=== PATIENT | female | born 1980 | race Caucasian/White ===

== ENCOUNTER 2018-07-07 11:58 | Emergency (ER) | payer OTHER ==
[2018-07-07] MEDS: NS 1,000 ML IV (12:53)
[2018-07-07] MEDS: METOCLOPRAMIDE INJ 10MG/2ML VIAL (J2765) IV (12:59)
[2018-07-07] MEDS: diphenhydrAMINE INJ 50MG/ML VIAL (J1200) IV (13:00)
[2018-07-07 13:06] LABS: HEMATOCRIT 42.6 % (36.0-47.0); HEMOGLOBIN 14.1 g/dl (12.0-15.5); MEAN CORPUSCULAR HEMOGLOBIN 31.3 pg (27.0-33.0); MEAN CORPUSCULAR HGB CONC 33.1 g/dl (32.0-36.5); MEAN CORPUSCULAR VOLUME 94.7 fl (80.0-96.0); PLATELET COUNT, AUTOMATED 223 10^3/uL (150-450); RED CELL DISTRIBUTION WIDTH 12.5 % (11.5-14.5); WHITE BLOOD COUNT 5.9 10^3/uL (4.0-10.0)
[2018-07-07] MEDS: KETOROLAC 30 MG/ML VIAL (J1885) IV (13:06)
[2018-07-07 13:17] LABS: INR 1.04; PROTHROMBIN TIME 13.7 SECONDS (12.1-14.4)
[2018-07-07 13:27] LABS: ANION GAP 5 MEQ/L (8-16); BLOOD UREA NITROGEN 8 MG/DL (7-18); CALCIUM LEVEL 9.1 MG/DL (8.5-10.1); CARBON DIOXIDE LEVEL 30 MEQ/L (21-32); CHLORIDE LEVEL 107 MEQ/L (98-107); CREATININE FOR GFR 0.78 MG/DL (0.55-1.30); GLOMERULAR FILTRATION RATE > 60.0 (>60); GLUCOSE, FASTING 82 MG/DL (70-100); POTASSIUM SERUM 4.2 MEQ/L (3.5-5.1); SODIUM LEVEL 142 MEQ/L (136-145)
== END 2018-07-07 14:22 | disposition home or self-care (01) ==
LOC: M ED 11:58
DX: G43.909 Migraine, unspecified, not intractable, without status migrainosus (principal); J45.909 Unspecified asthma, uncomplicated; Z72.0 Tobacco use
CPT/HCPCS: J1200

== ENCOUNTER 2019-08-14 14:05 | Inpatient (IN) | payer OTHER ==
[~2019-08-14] VITALS: Ht 167.6 cm; Wt 72.0 kg
[~2019-08-14 14:05] MED LIST: REGL10TA6 PO
[2019-08-14 14:25] LABS: VENOUS BASE EXCESS -1.3 (-2.0-2.0); VENOUS HCO3 20.7 MEQ/L (23.0-27.0); VENOUS PARTIAL PRESSURE CO2 28.2 mmHg (38.0-50.0); VENOUS PARTIAL PRESSURE O2 42.8 mmHg (30.0-50.0); VENOUS PH 7.483 UNITS (7.330-7.430); VENOUS STANDARD HCO3 23.1 MEQ/L; VENOUS TOTAL CO2 21.5 MEQ/L (24.0-28.0)
[2019-08-14] MEDS ORDERED: ONDANSETRON 4MG/2ML VIAL (J2405) As Ordered ONE (14:32)
--- NOTE | 2019-08-14 14:33 | REP ---
Clinical: Drug overdose . Comparison: 12/30/2011 . Findings: The mediastinum and cardiac silhouette are stable and within normal limits for portable technique. The lung moreno are clear without acute consolidation, effusion, or pneumothorax. Skeletal structures are intact. Impression: No acute cardiopulmonary process appreciated. Electronically Signed by Hunter Syed MD 08/14/2019 02:23 P
[2019-08-14 14:39] LABS: BASO # 0.1 10^3/uL (0.0-0.2); BASO % 0.8 % (0.0-1.0); EOS # 0.1 10^3/uL (0.0-0.5); EOS % 1.6 % (0.0-3.0); HEMATOCRIT 46.5 % (36.0-47.0); HEMOGLOBIN 15.2 g/dl (12.0-15.5); LYMPH # 2.8 10^3/uL (1.5-5.0); LYMPH % 37.1 % (24.0-44.0); MEAN CORPUSCULAR HEMOGLOBIN 30.2 pg (27.0-33.0); MEAN CORPUSCULAR HGB CONC 32.7 g/dl (32.0-36.5); MEAN CORPUSCULAR VOLUME 92.4 fl (80.0-96.0); MONO # 0.4 10^3/uL (0.0-0.8); MONO % 5.9 % (0.0-5.0); NEUTROPHILS % 54.2 % (36.0-66.0); PLATELET COUNT, AUTOMATED 293 10^3/uL (150-450); RED BLOOD COUNT 5.03 10^6/uL (4.00-5.40); WHITE BLOOD COUNT 7.4 10^3/uL (4.0-10.0)
[2019-08-14] MEDS ORDERED: ONDANSETRON 4MG/2ML VIAL (J2405) IV ONE (14:45)
[2019-08-14] MEDS ORDERED: CETACAINE SPRAY 5GM As Ordered ONE (14:50)
[2019-08-14 15:00] LABS: HCG, SERUM QUALITATIVE NEGATIVE (NEGATIVE); OSMOLALITY SERUM 293 MOSM/KG (275-295)
[2019-08-14 15:08] LABS: ACETAMINOPHEN LEVEL < 2.0 UG/ML (10.0-30.0); ALBUMIN 4.7 GM/DL (3.2-5.2); ALT/SGPT 36 U/L (12-78); BILIRUBIN,DIRECT < 0.1 MG/DL (0.0-0.2); BILIRUBIN,TOTAL 0.4 MG/DL (0.2-1.0); BLOOD UREA NITROGEN 11 MG/DL (7-18); CALCIUM LEVEL 9.6 MG/DL (8.5-10.1); CARBON DIOXIDE LEVEL 21 MEQ/L (21-32); CHLORIDE LEVEL 105 MEQ/L (98-107); CPK CREATINE PHOSPHOKINASE 129 U/L (26-192); CREATININE FOR GFR 1.02 MG/DL (0.55-1.30); ETHYL ALCOHOL (ETHANOL) < 0.003 % (0.000-0.010); GLOMERULAR FILTRATION RATE > 60.0 (>58); GLUCOSE, FASTING 121 MG/DL (70-100); POTASSIUM SERUM 3.5 MEQ/L (3.5-5.1); SALICYLATE LEVEL < 1.7 MG/DL (5.0-30.0); SODIUM LEVEL 139 MEQ/L (136-145); TOTAL PROTEIN 8.1 GM/DL (6.4-8.2)
[2019-08-14] MEDS ORDERED: CETACAINE SPRAY 5GM TOP ONE (15:15)
[2019-08-14] MEDS ORDERED: SERT-141 PO (15:23)
--- NOTE | 2019-08-14 15:56 | ECGEPIP ---
[facility] - ED Test Date: 2019-08-14 Pat Name: GERMÁN FRANCIS Department: Room: - Gender: Female Mammal Control Agent: marquis : 1980 Requested By: LIZ EMERY Order Number: [id number] Reading MD: Marshal Cartwright Measurements Intervals [place] Rate: 89 P: 74 [place]: 145 QRS: 79 QRSD: 83 T: 73 QT: 378 QTc: 462 Interpretive Statements SINUS RHYTHM WITH SINUS ARRHYTHMIA POOR R WAVE PROGRESSION NSTTW ABNORMALITIES NO PRIORS FOR COMPARISON Electronically Signed on 08-14-2019 15:55:59 EST by Marshal Cartwright
[2019-08-14] MEDS ORDERED: CEPACOL LOZENGE PO STA (16:20)
[2019-08-14] MEDS ORDERED: ALBUTEROL SULFATE 2.5 MG/0.5 ML INH NEB SOLN INH ONE (16:30)
[2019-08-14] MEDS ORDERED: NS 1,000 ML IV ONE (17:00)
[2019-08-14] MEDS ORDERED: SERT-138 PO (17:08)
[2019-08-14] MEDS ORDERED: VALA1TAB64 PO (17:08)
[2019-08-14 17:56] LABS: BLOOD UREA NITROGEN 14 MG/DL (7-18); CALCIUM LEVEL 9.5 MG/DL (8.5-10.1); CARBON DIOXIDE LEVEL 22 MEQ/L (21-32); CHLORIDE LEVEL 109 MEQ/L (98-107); CREATININE FOR GFR 0.93 MG/DL (0.55-1.30); GLOMERULAR FILTRATION RATE > 60.0 (>58); GLUCOSE, FASTING 138 MG/DL (70-100); POTASSIUM SERUM 3.5 MEQ/L (3.5-5.1); SODIUM LEVEL 142 MEQ/L (136-145)
--- NOTE | 2019-08-14 18:06 | HPEPDOC ---
[facility] Medical History & Physical Date of Admission Aug 14, 2019 Date of Service: Aug 14, 2019 History and Physical CHIEF COMPLAINT: Overdose HISTORY OF PRESENT ILLNESS: Patient is 38F with PMH depression presented to the ER after suicidal attempt at home after ingesting 90 tablets of sertraline. Reportedly came in about 30-45 min after ingestion to the ER around 2PM today. She developed significant vomiting since ingestion at home and was noticed by her . Patient recently lost her son in while he was in [place] and have just returned about the services. She reports throat discomfort with significant cough and therefore difficult to speak much, much of history is verified with at bedside. In ER, she was scoped through the nares which noted the vocal cords to be intact and patent but some swelling noted in other surrounding areas, also some saliva noted in airway suggestive of aspiration. She started to require O2 in ER but currently saturating well on 4L. She denies any chest pain or any other discomfort apart from throat pain with cough and vomiting. PAST MEDICAL HISTORY: Refer to [facility] PAST SURGICAL HISTORY: Hysterectomy SOCIAL HISTORY: Social alcoho use. Denies tobacco or illicit drug use. FAMILY HISTORY: reviewed and noncontributory ALLERGIES: Please see below. REVIEW OF SYSTEMS: 10 point review of system negative except as stated in HPI HOME MEDICATIONS: Please see below. PHYSICAL EXAMINATION: General: Tachypnic, mild to moderate distress with cough, Alert and follow commands Eyes: Normal sclera, EOMI HENT: Atraumatic Cardiovascular: Normal rate, normal rhythm. Pulmonary: b/l basal rales GI: Soft, nontender, nondistended Skin: Warm and dry Neuro: CN grossly intact. No focal deficits. Strengths equal b/l. Psych: oriented x 3 LABORATORY DATA: See below. IMAGING: CXR- Findings: The mediastinum and cardiac silhouette are stable and within normal limits for portable technique. The lung moreno are clear without acute consolidation, effusion, or pneumothorax. Skeletal structures are intact. Impression: No acute cardiopulmonary process appreciated. MICROBIOLOGY: Please see below. ASSESSMENT AND PLAN: 1. Sertraline overdose - vomited profusely since arrival with pills noted in vomitus. - EKG reviewed with no significant abnormalities. - Poison controlled contact in ER, recommended monitoring for 6 hours with repeat BMP and EKG to assess Qtc interval. - Nasal scope in ER noted patent vocal cords. - Admit to ICU for close monitoring. If respiratory status worsening, will consult pulm to assess airway to determine need for intubation. - c/w O2 support as needed. - keep NPO at this time. - Psych consult. 1:1 observation, suicidal watch. 2. hx depression - Denies current suicidal ideation. - consult psych DVT ppx: lovenox Vital Signs Vital Signs Date Time Temp Pulse Resp B/P (MAP) Pulse Ox O2 Delivery O2 Flow Rate FiO2 08/14/19 17:30 99 20 110/70 (83) 94 Nasal Cannula 4.0 08/14/19 15:16 97.9 Laboratory Data Labs 24H Laboratory Tests 2 08/14/19 14:15: Immature Granulocyte % (Auto) 0.4, Neutrophils (%) (Auto) 54.2, Lymphocytes (%) (Auto) 37.1, Monocytes (%) (Auto) 5.9H, Eosinophils (%) (Auto) 1.6, Basophils (%) (Auto) 0.8, Neutrophils # (Auto) 4.0, Lymphocytes # (Auto) 2.8, Monocytes # (Auto) 0.4, Eosinophils # (Auto) 0.1, Basophils # (Auto) 0.1, Nucleated Red Blood Cells % (auto) 0.0, Blood Gas Bicarbonate Standard 23.1, Venous Blood pH 7.483H, Venous Blood Partial Pressure CO2 28.2L, Venous Blood Partial Pressure O2 42.8, Venous Blood Total Carbon Dioxide 21.5L, Venous Blood HCO3 20.7L, Venous Blood Oxygen Saturation 84.0H, Venous Blood Base Excess -1.3, Anion Gap 13, Glomerular Filtration Rate > 60.0, Osmolality 293, Lactic Acid Level 4.5*H, Calcium Level 9.6, Total Bilirubin 0.4, Direct Bilirubin < 0.1, Aspartate Amino Transf (AST/SGOT) 37, Alanine Aminotransferase (ALT/SGPT) 36, Alkaline Phosphatase 100, Total Creatine Kinase 129, Total Protein 8.1, Albumin 4.7, Alb umin/Globulin Ratio 1.38, Thyroid Stimulating Hormone (TSH) 2.230, Human Chorionic Gonadotropin, Qual NEGATIVE, Salicylates Level < 1.7L, Acetaminophen Level < 2.0L, Ethyl Alcohol Level < 0.003 08/14/19 14:23: Bedside Glucose (Misc Panel) 131H 08/14/19 14:24: POC Glucose (Misc Panel) 144H, POC Sodium (Misc Panel) 139, POC Potassium (Misc Panel) 3.5, POC Chloride (Misc Panel) 106, POC Total CO2 (Misc Panel) 21.0L, POC Blood Urea Nitrogen (Misc Panel 11, POC Ionized Calcium (Misc Panel) 4.5, POC Creatinine (Misc Panel) 0.8, POC Hematocrit (Misc Panel) 43.0 08/14/19 14:27: POC Beta HCG, Quantitative < 5.0 08/14/19 17:13: Anion Gap 11, Glomerular Filtration Rate > 60.0, Calcium Level 9.5 CBC/BMP Laboratory Tests 08/14/19 14:15 08/14/19 17:13 Home Medications Scheduled Sertraline HCl (Sertraline HCl) 100 Mg Tablet, 100 MG PO DAILY Valacyclovir HCl (Valacyclovir) 1,000 Mg Tablet, 1 GM PO DAILY Allergies Coded Allergies: No Known Allergies (Unverified , 07/07/18) A-FIB/CHADSVASC A-FIB History Current/History of A-Fib/PAF?: No GUME CISNEROS MD Aug 14, 2019 18:06
[2019-08-14 19:12] VITALS: BP 124/65
[2019-08-14] MEDS: NS 1,000 ML IV SCH (19:20)
[2019-08-14 19:29] LABS: BLOOD UREA NITROGEN 13 MG/DL (7-18); CALCIUM LEVEL 8.8 MG/DL (8.5-10.1); CARBON DIOXIDE LEVEL 21 MEQ/L (21-32); CHLORIDE LEVEL 112 MEQ/L (98-107); CREATININE FOR GFR 0.89 MG/DL (0.55-1.30); GLOMERULAR FILTRATION RATE > 60.0 (>58); GLUCOSE, FASTING 125 MG/DL (70-100); POTASSIUM SERUM 3.5 MEQ/L (3.5-5.1); SODIUM LEVEL 142 MEQ/L (136-145)
[2019-08-14 19:47] LABS: AMPHETAMINES LEVEL URINE NEGATIVE (NEGATIVE); BARBITURATES URINE NEGATIVE (NEGATIVE); BENZODIAZEPINES URINE POSITIVE (NEGATIVE); CANNABINOIDS URINE NEGATIVE (NEGATIVE); COCAINE METABOLITE URINE NEGATIVE (NEGATIVE); METHADONE URINE NEGATIVE (NEGATIVE); OPIATES URINE NEGATIVE (NEGATIVE); PHENCYCLIDINE URINE NEGATIVE (NEGATIVE)
[2019-08-14] MEDS: ONDANSETRON 4MG/2ML VIAL (J2405) IV PRN (19:47)
[2019-08-14] MEDS: IPRATROPIUM 0.5MG/ALBUTEROL 2.5MG INH SOL UD 3ML (DUONEB)(J7620) NEB PRN (20:19)
--- NOTE | 2019-08-14 20:29 | ECGEPIP ---
[facility] - ED Test Date: 2019-08-14 Pat Name: GERMÁN FRANCIS Department: Room: 01[facility] Gender: Female Bladder Changer: cesar : 1980 Requested By: TAMMY [place] Order Number: [id number] Reading MD: Marshal Cartwright Measurements Intervals [place] Rate: 98 P: 67 [place]: 155 QRS: 75 QRSD: 85 T: 66 QT: 358 QTc: 459 Interpretive Statements SINUS RHYTHM POOR R WAVE PROGRESSION NSTTW ABNORMALITIES SIMILAR TO PRIOR ON SAME DATE Electronically Signed on 08-14-2019 20:29:37 EST by Marshal Cartwright
[2019-08-14] MEDS ORDERED: methylPREDNISolone INJ 125 MG/2 ML VIAL (J2930) IV ONE (20:30)
[2019-08-14] MEDS: ENOXAPARIN 40 MG/0.4 ML SYRINGE (J1650) SC SCH (20:39)
[2019-08-14] MEDS: PIPERACILLIN/TAZOBACTAM SOD 3.375 GM in D5W MINI-BAG PLUS 50 ML IV SCH (20:39)
[2019-08-14 21:00] VITALS: BP 121/61
[2019-08-14] MEDS: LIDOCAINE VISCOUS 2% SOLN 15ML UDC SS PRN (21:27)
[2019-08-15] VITALS (7 sets, daily range): BP systolic 97–113; BP diastolic 54–68
--- NOTE | 2019-08-15 00:13 | ECGEPIP ---
[facility] Test Date: 2019-08-14 Pat Name: GERMÁN FRANCIS Department: Room: [place] [address] Gender: Female Interactive Developer: carolyn : 1980 Requested By: GUME Farrell Order Number: [id number] Reading MD: Rudi Morrissey Measurements Intervals [place] Rate: 99 P: 60 [place]: 136 QRS: 77 QRSD: 79 T: 76 QT: 364 QTc: 469 Interpretive Statements SINUS RHYTHM NONSPECIFIC T-WAVE ABNORMALITY Similar to tracing done 17:34 on the same day Electronically Signed on 08-15-2019 0:13:00 EST by Rudi Morrissey
[2019-08-15 00:44] LABS: BLOOD UREA NITROGEN 14 MG/DL (7-18); CALCIUM LEVEL 8.7 MG/DL (8.5-10.1); CARBON DIOXIDE LEVEL 21 MEQ/L (21-32); CHLORIDE LEVEL 111 MEQ/L (98-107); CREATININE FOR GFR 1.06 MG/DL (0.55-1.30); GLOMERULAR FILTRATION RATE > 60.0 (>58); GLUCOSE, FASTING 156 MG/DL (70-100); MAGNESIUM LEVEL 1.7 MG/DL (1.8-2.4); POTASSIUM SERUM 3.8 MEQ/L (3.5-5.1); SODIUM LEVEL 142 MEQ/L (136-145)
[2019-08-15] MEDS: MAG SULF 1GM/100ML (MAG RUN) 1 GM in IV 1 EA IV SCH ×2 (01:24→02:33)
[2019-08-15] MEDS: PIPERACILLIN/TAZOBACTAM SOD 3.375 GM in D5W MINI-BAG PLUS 50 ML IV SCH ×4 (02:33→21:37)
[2019-08-15] MEDS: ONDANSETRON 4MG/2ML VIAL (J2405) IV PRN (02:33)
[2019-08-15] MEDS: methylPREDNISolone INJ 40 MG/1 ML VIAL (J2920) IV SCH ×3 (03:44→21:38)
[2019-08-15] MEDS: NS 1,000 ML IV SCH ×4 (03:44→21:16)
--- NOTE | 2019-08-15 07:46 | REP ---
Clinical: Hypoxia . Comparison: 12/30/2011, 08/14/2019 . Findings: The mediastinum and cardiac silhouette are stable and within normal limits for portable technique. The lung moreno are clear without acute consolidation, effusion, or pneumothorax. Skeletal structures are intact. Impression: No acute cardiopulmonary process appreciated. Electronically Signed by Hunter Syed MD 08/15/2019 07:37 A
[2019-08-15 08:58] LABS: HEMATOCRIT 37.8 % (36.0-47.0); MEAN CORPUSCULAR HEMOGLOBIN 30.4 pg (27.0-33.0); MEAN CORPUSCULAR HGB CONC 32.5 g/dl (32.0-36.5); MEAN CORPUSCULAR VOLUME 93.3 fl (80.0-96.0); RED BLOOD COUNT 4.05 10^6/uL (4.00-5.40); WHITE BLOOD COUNT 12.8 10^3/uL (4.0-10.0)
[2019-08-15 09:05] LABS: HEMOGLOBIN 12.3 g/dl (12.0-15.5)
[2019-08-15 09:06] LABS: PLATELET COUNT, AUTOMATED 181 10^3/uL (150-450)
[2019-08-15 09:19] LABS: BLOOD UREA NITROGEN 12 MG/DL (7-18); CALCIUM LEVEL 8.6 MG/DL (8.5-10.1); CARBON DIOXIDE LEVEL 20 MEQ/L (21-32); CHLORIDE LEVEL 112 MEQ/L (98-107); CREATININE FOR GFR 0.88 MG/DL (0.55-1.30); GLOMERULAR FILTRATION RATE > 60.0 (>58); GLUCOSE, FASTING 138 MG/DL (70-100); MAGNESIUM LEVEL 2.4 MG/DL (1.8-2.4); POTASSIUM SERUM 3.8 MEQ/L (3.5-5.1); SODIUM LEVEL 143 MEQ/L (136-145)
--- NOTE | 2019-08-15 09:58 | IPNPDOC ---
Date Seen The patient was seen on 08/15/19. Progress Note SUBJECTIVE: Patient was seen and examined this morning at bedside. She remains on high flow nasal cannula with 50% FiO2. She continues to complain of a sore throat. She is using lidocaine gel however states that it is not helping much. She is still nauseas with vomiting. She feels her breathing has improved a little however continues to have a cough with wheezing. OBJECTIVE PHYSICAL EXAMINATION: VITAL SIGNS: Please see below. GENERAL: Awake, alert, and oriented. Lying in bed in no acute distress. She appears mildly uncomfortable. She has high flow nasal cannula in place. HEENT: Atraumatic, normocephalic. eyes are nonicteric. Trachea is midline. Throat is erythematous. She has high flow nasal cannula in place CARDIOVASCULAR: Normal S1, S2. Regular rate and rhythm. No clicks, rubs, or murmurs. No JVD RESPIRATORY: Rhonchorous breath sounds bilaterally with scattered wheezing. Goo d respiratory effort. Some accessory muscle use. Symmetric chest expansion ABDOMINAL: Soft, nondistended. Nontender. Normoactive bowel sounds EXTREMITIES: No edema. Full and equal pulses in bilateral lower extremities NEUROLOGICAL: No focal neurological deficits PSYCHOLOGICAL: Mood and affect appear appropriate for situation LABORATORY DATA, IMAGING STUDIES, MICROBIOLOGY: Please see below. DVT prophylaxis ordered?: YES ASSESSMENT AND PLAN: Patient is a 38 year old female who presented with suicide attempt via ingestion of Sertraline PROBLEMS: 1. SSRI Overdose -Patient presented to the ER with an overdose from Sertraline. She has had significant nausea and vomiting. -Patient is continued to be observed in ICU -No abnormalities on telemetry -Patient will need psychiatric consult upon medica clearance -Patient is currently NPO -Urine drug screen is positive for Benzodiazepines. However, Sertraline has been shown to produce false positive benzodiazepine results on urine toxicology. Patient denies benzodiazepine use 2. Hypoxia 2/2 Aspiration Pneumonia -Patient has had significant nausea and vomiting. She has developed hypoxia requiring high flow oxygen. On exam she is rhonchorous with scattered wheezing. She has likely aspirated. -Continue with Zosyn -Patient is currently in the ICU as she remains hypoxic. She is a risk for intubation. Will likely downgrade later in day or tomorrow pending clinical improvement -patient is on Solumederol 40 q8h -Duonebs prn -Patient is currently NPO. Will have speech and swallow eval. Place on pureed diet. Will advance pending recommendations from speech 3. Nausea and Vomiting -Likely secondary to overdose -Zofran PRN 4. Sore throat -Likely secondary to vomiting. Patient had scope in ER demonstrating some swelling of vocal chords. This is likely contributed to irritation from gastric acid contents -Patient has lidocaine solution. Will add Chloraseptic spray 5. Depression/bereavement -Patient has a history of depression with recent suicide attempt -Reportedly the patients son has recently . -Patient will need psychiatric evaluation once medically cleared 6. DVT prophylaxis -Lovenox 40 QHS ATTENDING NOTE I have personally evaluated and examined the patient. Discussed with resident/student regarding plan of care and agree with the above assessment and plan. Patient noted to be improved from yesterday as cough had slowed down significantly, although requires higher O2 requirement. To get speech eval and start on diet if tolerated. Can likely be downgrade to PCU later today or tomorrow. VS, I&O, 24H, Fishbone Vital Signs/I&O Vital Signs Date Time Temp Pulse Resp B/P (MAP) Pulse Ox O2 Delivery O2 Flow Rate FiO2 08/15/19 08:00 25.0 50 08/15/19 08:00 99.2 90 24 101/55 (70) 88 HVNI-Vapotherm I&O- Last 24 Hours up to 6 AM 08/15/19 05:59 Intake Total 1190 ml Output Total 500 ml Balance 690 ml Laboratory Data 24H LABS Laboratory Tests 2 08/14/19 14:15: Immature Granulocyte % (Auto) 0.4, Neutrophils (%) (Auto) 54.2, Lymphocytes (%) (Auto) 37.1, Monocytes (%) (Auto) 5.9H, Eosinophils (%) (Auto) 1.6, Basophils (%) (Auto) 0.8, Neutrophils # (Auto) 4.0, Lymphocytes # (Auto) 2.8, Monocytes # (Auto) 0.4, Eosinophils # (Auto) 0.1, Basophils # (Auto) 0.1, Nucleated Red B lood Cells % (auto) 0.0, Blood Gas Bicarbonate Standard 23.1, Venous Blood pH 7.483H, Venous Blood Partial Pressure CO2 28.2L, Venous Blood Partial Pressure O2 42.8, Venous Blood Total Carbon Dioxide 21.5L, Venous Blood HCO3 20.7L, Venous Blood Oxygen Saturation 84.0H, Venous Blood Base Excess -1.3, Anion Gap 13, Glomerular Filtration Rate > 60.0, Osmolality 293, Lactic Acid Level 4.5*H, Calcium Level 9.6, Total Bilirubin 0.4, Direct Bilirubin < 0.1, Aspartate Amino Transf (AST/SGOT) 37, Alanine Aminotransferase (ALT/SGPT) 36, Alkaline Phosphatase 100, Total Creatine Kinase 129, Total Protein 8.1, Albumin 4.7, Albumin/Globulin Ratio 1.38, Thyroid Stimulating Hormone (TSH) 2.230, Human Chorionic Gonadotropin, Qual NEGATIVE, Salicylates Level < 1.7L, Urine Opiates Screen NEGATIVE, Urine Methadone Screen NEGATIVE, Acetaminophen Level < 2.0L, Urine Barbiturates Screen NEGATIVE, Urine Phencyclidine Screen NEGATIVE, Urine Amphetamines Screen NEGATIVE, Urine Benzodiazepines Screen POSITIVEH, Urine Cocaine Metabolite Screen NEGATIVE, Urine Cannabinoids Screen NEGATIVE, Ethyl Alcohol Level < 0.003 08/14/19 14:23: Bedside Glucose (Misc Panel) 131H 08/14/19 14:24: POC Glucose (Misc Panel) 144H, POC Sodium (Misc Panel) 139, POC Potassium (Misc Panel) 3.5, POC Chloride (Misc Panel) 106, POC Total CO2 (Misc Panel) 21.0L, POC Blood Urea Nitrogen (Misc Panel 11, POC Ionized Calcium (Misc Panel) 4.5, POC Creatinine (Misc Panel) 0.8, POC Hematocrit (Misc Panel) 43.0 08/14/19 14:27: POC Beta HCG, Quantitative < 5.0 08/14/19 17:13: Anion Gap 11, Glomerular Filtration Rate > 60.0, Calcium Level 9.5 08/14/19 18:43: Anion Gap 9, Glomerular Filtration Rate > 60.0, Calcium Level 8.8, Lactic Acid Followup at 4 Hours 2.4*H 08/15/19 00:15: Anion Gap 10, Glomerular Filtration Rate > 60.0, Calcium Level 8.7, Magnesium Level 1.7L 08/15/19 08:42: Nucleated Red Blood Cells % (auto) 0.0 CBC/BMP Laboratory Tests 08/14/19 14:15 08/14/19 17:13 08/14/19 18:43 08/15/19 00:15 08/15/19 08:42 SAE STACY DO Aug 15, 2019 09:58 GUME CISNEROS MD Aug 15, 2019 10:51
[2019-08-15] MEDS: CHLORASEPTIC SPRAY MT PRN (14:11)
[2019-08-15] MEDS: ENOXAPARIN 40 MG/0.4 ML SYRINGE (J1650) SC SCH (21:38)
[2019-08-16 00:47] VITALS: BP 96/52
[2019-08-16] MEDS: PIPERACILLIN/TAZOBACTAM SOD 3.375 GM in D5W MINI-BAG PLUS 50 ML IV SCH (03:09)
[2019-08-16 04:00] VITALS: BP 101/55
--- NOTE | 2019-08-16 06:57 | ECGEPIP ---
[facility] Test Date: 2019-08-15 Pat Name: GERMÁN FRANCIS Department: Room: V2944-19 Gender: Female Bioinformatics Support Specialist: SCOTTY : 1980 Requested By: ANGELICA Richter Order Number: [id number] Reading MD: Malick Walker Measurements Intervals [place] Rate: 92 P: 67 [place]: 154 QRS: 75 QRSD: 81 T: 66 QT: 360 QTc: 446 Interpretive Statements Normal sinus rhythm Somewhat early R-wave progression in the precordial leads Nonspecific repolarization abnormalities No significant change except for probable lead placement changes, versus prior tracing of 08/14/2019 Electronically Signed on 08-16-2019 6:57:08 EST by Malick Walker
[2019-08-16 07:22] LABS: HEMATOCRIT 35.1 % (36.0-47.0); HEMOGLOBIN 11.1 g/dl (12.0-15.5); MEAN CORPUSCULAR HEMOGLOBIN 30.8 pg (27.0-33.0); MEAN CORPUSCULAR HGB CONC 31.6 g/dl (32.0-36.5); MEAN CORPUSCULAR VOLUME 97.5 fl (80.0-96.0); PLATELET COUNT, AUTOMATED 164 10^3/uL (150-450); WHITE BLOOD COUNT 8.9 10^3/uL (4.0-10.0)
[2019-08-16 07:47] LABS: BLOOD UREA NITROGEN 9 MG/DL (7-18); CALCIUM LEVEL 8.3 MG/DL (8.5-10.1); CARBON DIOXIDE LEVEL 23 MEQ/L (21-32); CHLORIDE LEVEL 114 MEQ/L (98-107); CREATININE FOR GFR 0.66 MG/DL (0.55-1.30); GLOMERULAR FILTRATION RATE > 60.0 (>58); GLUCOSE, FASTING 114 MG/DL (70-100); POTASSIUM SERUM 4.1 MEQ/L (3.5-5.1); SODIUM LEVEL 143 MEQ/L (136-145)
[2019-08-16 08:00] VITALS: BP 98/54
--- NOTE | 2019-08-16 09:39 | REP ---
Clinical: Possible aspiration pneumonia . Comparison: 08/15/2019 . Findings: The mediastinum and cardiac silhouette are stable and within normal limits for portable technique. The lung moreno are clear without acute consolidation, effusion, or pneumothorax. Skeletal structures are intact. Impression: No acute cardiopulmonary process appreciated. Electronically Signed by Hunter Syed MD 08/16/2019 09:31 A
[2019-08-16] MEDS ORDERED: MOXIFLOXACIN HCL 400 MG in IV 1 EA IV SCH (10:00)
--- NOTE | 2019-08-16 11:15 | IPNPDOC ---
Date Seen The patient was seen on 08/16/19. Progress Note SUBJECTIVE: Patient was seen and examined this morning at bedside. She currently states that she is starting to feel better. She was previously on high flow nasal cannula however has been able to be titrated down to room air. She continues to have pain in her throat. Her nausea and vomiting has resolved. The patient was evaluated by speech yesterday who recommended a pureed diet. She has been able to tolerate her diet well. OBJECTIVE PHYSICAL EXAMINATION: VITAL SIGNS: Please see below. GENERAL: Awake, alert, and oriented. Lying in bed comfortably. Appears in no acute distress HEENT: Atraumatic, normocephalic. Eyes are nonicteric. trachea is midline CARDIOVASCULAR: Normal S1, S2. Regular rate and rhythm. No clicks rubs or murmurs RESPIRATORY: Clear vesicular breath sounds bilaterally. Some expiratory wheezes. No crackles or rhonchi. Good respiratory effort. Symmetric chest expansion ABDOMINAL: Soft, nondistended. Nontender. No rebound tenderness or guarding. Normoactive bowel sounds throughout EXTREMITIES: No edema. Full and equal pulses in bilateral lower extremities NEUROLOGICAL: No focal neurological deficits PSYCHOLOGICAL: Mood and affect appear appropriate LABORATORY DATA, IMAGING STUDIES, MICROBIOLOGY: Please see below. DVT prophylaxis ordered?: Lovenox ASSESSMENT AND PLAN: Patient is a 38 year old female who presented with suicide attempt via ingestion of Sertraline and subsequently developed hypoxia secondary to aspiration pneumonia PROBLEMS: 1. SSRI Overdose/Suicide Attempt -Patient presented to the ER with Sertraline overdose. She had developed nausea and vomiting leading to aspiration pneumonia -No abnormalities observed on Telemetry -Urine drug screen positive only for benzodiazepines however likely false positive from Sertraline -Patient will likely be medically cleared within 24 hours. She is pending psychiatry consult for evaluation; consultation has been placed today 2. Hypoxia 2/2 Aspiration Pneumonia -Patient has had significant nausea and vomiting. She has developed hypoxia requiring high flow oxygen. She has been weaned down to room air. -Patient was on Zosyn. Have changed patient to Moxifloxacin. Will change to oral dosing once patient is evaluated by psychiatry and decision is made for admittance to [facility] vs discharge. -Patient has demonstrated improvement in oxygenation. Will downgrade to med/surg status - c/w speech therapy recommendations -Duonebs prn -Oxygen therapy orders for maintain O2 sats 88-92% 3. Nausea and Vomiting -Likely secondary to overdose. Today she has stated that she does not feel nauseas and is tolerating diet -Zofran PRN 4. Sore throat -Likely secondary to vomiting. Patient had scope in ER demonstrating some swelling of vocal chords. This is likely contributed to irritation from gastric acid contents -Patient has lidocaine solution. Patient has stated that the Chloraseptic spray has helped 5. Depression/bereavement -Patient has a history of depression with recent suicide attempt -Reportedly the patients son has recently . -Currently pending psychiatric consultation 6. DVT prophylaxis -Lovenox 40 QHS DISPOSITION: Patient will likely be medically cleared within 24 hours. She is pending psychiatric evaluation today VS, I&O, 24H, Fishbone Vital Signs/I&O Vital Signs Date Time Temp Pulse Resp B/P (MAP) Pulse Ox O2 Delivery O2 Flow Rate FiO2 08/16/19 06:30 81 18 92 Room Air 08/16/19 05:25 2.0 08/16/19 04:00 98.3 101/55 (70) 08/16/19 02:00 45 I&O- Last 24 Hours up to 6 AM 08/16/19 06:00 Intake Total 4210 ml Output Total 1175 ml Balance 3035 ml Laboratory Data 24H LABS Laboratory Tests 2 08/16/19 07:13: Nucleated Red Blood Cells % (auto) 0.0, Anion Gap 6L, Glomerular Filtration Rate > 60.0, Calcium Level 8.3L CBC/BMP Laboratory Tests 08/16/19 07:13 GME ATTESTATION GME ATTESTATION My faculty preceptor for this patient encounter was physically present during the encounter and was fully available. All aspects of the patient interview, examination, medical decision making process, and medical care plan development were reviewed and approved by the faculty preceptor. The faculty preceptor is aware and concurs with the plan as stated in the body of this note and will attest to such by his/her cosignature. ATTENDING NOTE I, Sunita Rothman, have independently examined this patient and performed my own physical exam, as well as reviewed the documentation and edited where necessary. I have discussed in detail with the resident / student the findings and plan of treatment as documented by the resident / student and edited their note. I agree with their findings and treatment plan and have edited their documentation. I will continue to follow the patient during this hospital stay. SAE STACY DO Aug 16, 2019 11:14 SUNITA ROTHMAN MD Aug 16, 2019 15:01
[2019-08-16 12:00] VITALS: BP 108/57
[2019-08-16 14:05] VITALS: BP 107/69
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
[2019-08-16] MEDS: LIDOCAINE VISCOUS 2% SOLN 15ML UDC SS PRN (21:43)
[2019-08-16] MEDS: IPRATROPIUM 0.5MG/ALBUTEROL 2.5MG INH SOL UD 3ML (DUONEB)(J7620) NEB PRN (21:43)
[2019-08-16] MEDS: ENOXAPARIN 40 MG/0.4 ML SYRINGE (J1650) SC SCH (21:43)
[2019-08-16] MEDS: CHLORASEPTIC SPRAY MT PRN ×2 (21:43→23:54)
[2019-08-16 22:00] VITALS: BP 111/53
[2019-08-16] MEDS ORDERED: BENZONATATE 100 MG CAP PO PRN (23:00)
[2019-08-16] MEDS ORDERED: ACETAMINOPHEN TAB 650MG DOSE (2X325MG) PO PRN (23:00)
[2019-08-16] MEDS ORDERED: IPRATROPIUM 0.5MG/ALBUTEROL 2.5MG INH SOL UD 3ML (DUONEB)(J7620) NEB PRN (23:40)
[2019-08-17 06:00] VITALS: BP 97/59
[2019-08-17] MEDS ORDERED: MOXIFLOXACIN 400 MG TAB PO SCH (06:00)
[2019-08-17 06:11] LABS: HEMATOCRIT 33.4 % (36.0-47.0); HEMOGLOBIN 10.8 g/dl (12.0-15.5); MEAN CORPUSCULAR HEMOGLOBIN 31.1 pg (27.0-33.0); MEAN CORPUSCULAR HGB CONC 32.3 g/dl (32.0-36.5); MEAN CORPUSCULAR VOLUME 96.3 fl (80.0-96.0); PLATELET COUNT, AUTOMATED 155 10^3/uL (150-450); RED BLOOD COUNT 3.47 10^6/uL (4.00-5.40); WHITE BLOOD COUNT 5.1 10^3/uL (4.0-10.0)
[2019-08-17 06:34] LABS: BLOOD UREA NITROGEN 14 MG/DL (7-18); CALCIUM LEVEL 8.3 MG/DL (8.5-10.1); CARBON DIOXIDE LEVEL 27 MEQ/L (21-32); CHLORIDE LEVEL 114 MEQ/L (98-107); CREATININE FOR GFR 0.74 MG/DL (0.55-1.30); GLOMERULAR FILTRATION RATE > 60.0 (>58); GLUCOSE, FASTING 90 MG/DL (70-100); MAGNESIUM LEVEL 1.9 MG/DL (1.8-2.4); POTASSIUM SERUM 3.6 MEQ/L (3.5-5.1); SODIUM LEVEL 146 MEQ/L (136-145)
[2019-08-17] MEDS ORDERED: MOXI400T11 PO (07:45)
[2019-08-17] MEDS ORDERED: BENZ-18 PO (07:45)
[2019-08-17] MEDS ORDERED: CHLORSP MT (07:45)
[2019-08-17] MEDS ORDERED: ONDA4TAB6 PO (07:45)
[2019-08-17] MEDS ORDERED: ONDANSETRON 4 MG ORAL DISINTEGRATING TAB (Q0162 PER 1MG) PO PRN (07:45)
[2019-08-17] MEDS ORDERED: PROAAER10 INH ×2 (09:07)
--- NOTE | 2019-08-17 11:28 | DS.PDOC ---
Discharge Summary General Date of Admission Aug 14, 2019 at 17:56 Date of Discharge 08/17/2019 Attending Physician: SUNITA DUARTE MD Discharge Summary PROCEDURES PERFORMED DURING STAY: [None]. ADMITTING DIAGNOSES: 1. Intentional Overdose 2. Aspiration Pneumonia DISCHARGE DIAGNOSES: 1. Intentional Overdose 2. Aspiration Pneumonia COMPLICATIONS/CHIEF COMPLAINT: Overdose. HISTORY OF PRESENT ILLNESS: Patient is a 38 year old female who presented to the [facility] ER after having attempted suicide by ingestion of 90 pills of sertraline. It was reported that the patients son had fairly recently unexpectedly in his sleep while overseas in [place]. The patient had recently returned from her [employer] service and having his body transported back to the [place]. She had stated that she ingested the 90 pills and subsequently presented to the ER. She developed significant nausea and vomiting which resulted in aspiration. The patient was admitted for overdose and aspiration HOSPITAL COURSE: Once hospitalized the patient was started on Zosyn for empiric treatment of her aspiration. Chest x-ray at the time was negative however her aspiration event was acute. The patient developed significant desaturations in her oxygenation. She was placed on high flow nasal cannula and transported to the ICU. The patient also developed swelling of her vocal chords likely seconda ry to gastric contents being aspirated. The patient was continued on IV antibiotics and pulmonary toilet. She demonstrated improvement throughout her hospitalization. She was transitioned to room air and oral antibiotics. She received re-imaging which demonstrated no acute process. Patient was found to be medically cleared. Psychiatry was consulted for evaluation of the patient given her suicide attempt. Patient was subsequently discharged to [facility]. DISCHARGE MEDICATIONS: Please see below. ALLERGIES: Please see below. PHYSICAL EXAMINATION ON DISCHARGE: VITAL SIGNS: Please see below. GENERAL: Awake, alert, and oriented. Appears in no acute distress. Lying in bed comfortably HEENT: Atraumatic, normocephalic. Eyes are nonicteric. Trachea is midline. Voice is hoarse NECK: No palpable cervical, axillary, or supraclavicular lymphadenopathy CARDIOVASCULAR EXAMINATION: Normal S1, S2. Regular rate and rhythm. No clicks rubs or murmurs RESPIRATORY EXAMINATION: Some scattered wheezing and bronchial breath sounds. Otherwise clear vesicular breath sounds. No rhonchi. Good respiratory effort ABDOMINAL EXAMINATION: Soft, nondistended. Nontender. No rebound tenderness or guarding. Normoactive bowel sounds EXTREMITIES: No edema. Full and equal pulses in bilateral upper and lower extremities SKIN: No rashes or lesions NEUROLOGICAL EXAMINATION: No focal neurological deficits PSYCHIATRIC EXAMINATION: Mood and affect appear appropriate LABORATORY DATA: Please see below. IMAGING: Clinical: Drug overdose . Comparison: 12/30/2011 . Findings: The mediastinum and cardiac silhouette are stable and within normal limits for portable technique. The lung moreno are clear without acute consolidation, effusion, or pneumothorax. Skeletal structures are intact. Impression: No acute cardiopulmonary process appreciated. Electronically Signed by Hunter Syed MD 08/14/2019 02:23 P Clinical: Hypoxia . Comparison: 12/30/2011, 08/14/2019 . Findings: The mediastinum and cardiac silhouette are stable and within normal limits for portable technique. The lung moreno are clear without acute consolidation, effusion, or pneumothorax. Skeletal structures are intact. Impression: No acute cardiopulmonary process appreciated. Electronically Signed by Hunter Syed MD 08/15/2019 07:37 A Clinical: Possible aspiration pneumonia . Comparison: 08/15/2019 . Findings: The mediastinum and cardiac silhouette are stable and within normal limits for portable technique. The lung moreno are clear without acute consolidation, effusion, or pneumothorax. Skeletal structures are intact. Impression: No acute cardiopulmonary process appreciated. Electronically Signed by Hunter Syed MD 08/16/2019 09:31 A PROGNOSIS: Fair ACTIVITY: [As tolerated]. DIET: As tolerated DISCHARGE PLAN: Patient is to be discharged to [facility] for further evaluation and m anagement of her depression and suicide attempt. She is to continue taking Moxifloxacin 400mg for an additional 3 days. Upon discharge from [facility] she is to follow-up with her PCP in 7-10 days. She is to return if her respiratory symptoms return or worsen DISPOSITION: Discharge to [facility] DISCHARGE CONDITION: [Stable]. TIME SPENT ON DISCHARGE: Greater than 40 minutes. Vital Signs/I&Os Vital Signs Date Time Temp Pulse Resp B/P (MAP) Pulse Ox O2 Delivery O2 Flow Rate FiO2 08/17/19 06:00 97.6 75 18 97/59 (72) 95 Room Air 08/16/19 05:25 2.0 08/16/19 02:00 45 I&O- Last 24 Hours up to 6 AM 08/17/19 05:59 Intake Total 2590 ml Output Total 725 ml Balance 1865 ml Laboratory Data Labs 24H Laboratory Tests 2 08/17/19 05:25: Nucleated Red Blood Cells % (auto) 0.0, Anion Gap 5L, Glomerular Filtration Rate > 60.0, Calcium Level 8.3L, Magnesium Level 1.9 CBC/BMP Laboratory Tests 08/17/19 05:25 Discharge Medications Scheduled Albuterol Sulfate (Proair Hfa) 8.5 Gm Hfa.aer.ad, 1 PUFF INH Q6H Moxifloxacin HCl (Moxifloxacin HCl) 400 Mg Tablet, 400 MG PO DAILY@06 Valacyclovir HCl (Valacyclovir) 1,000 Mg Tablet, 1 GM PO DAILY, (Reported) Scheduled PRN Albuterol Sulfate (Proair Hfa) 8.5 Gm Hfa.aer.ad, 2 PUFF INH Q4-6HP PRN for wheezing Benzonatate (Benzonatate) 100 Mg Capsule, 100 MG PO TIDP PRN for COUGH Ondansetron (Ondansetron Odt) 4 Mg Tab.rapdis, 2 MG PO Q6HP PRN for NAUSEA Phenol (Sore Throat [place]) 177 Ml [place], 1 SPRAY MT Q2HP PRN for SORE THROAT Allergies Coded Allergies: No Known Allergies (Unverified , 07/07/18) GME ATTESTATION GME ATTESTATION My faculty preceptor for this patient encounter was physically present during the encounter and was fully available. All aspects of the patient interview, examination, medical decision making process, and medical care plan development were reviewed and approved by the faculty preceptor. The faculty preceptor is aware and concurs with the plan as stated in the body of this note and will attest to such by his/her cosignature. ATTENDING NOTE I, Sunita Duarte, have independently examined this patient and performed my own physical exam, as well as reviewed the documentation and edited where necessary. I have discussed in detail with the resident / student the findings and plan of treatment as documented by the resident / student and edited their note. I agree with their findings and treatment plan and have edited their documentation. I will continue to follow the patient during this hospital stay. SAE STACY DO Aug 17, 2019 11:28 SUNITA DUARTE MD Aug 17, 2019 14:20
[2019-08-18] MEDS ORDERED: BUPR150T3 PO (11:18)
== END 2019-08-17 11:36 | DRG 917 ==
LOC: M ED 14:05 → M ED INP 17:56 → M ICU 19:08 → M MSPAV 08-16 14:01
PROVIDERS: ADMIT Student in an Organized Health Care Education/Training Program; ATTEND Internal Medicine
DX: T43.222A Poisoning by selective serotonin reuptake inhibitors, intentional self-harm, initial encounter (principal); J69.0 Pneumonitis due to inhalation of food and vomit; F43.21 Adjustment disorder with depressed mood; Z79.899 Other long term (current) drug therapy; Z62.810 Personal history of physical and sexual abuse in childhood; Z62.811 Personal history of psychological abuse in childhood; F41.1 Generalized anxiety disorder

== ENCOUNTER 2019-08-17 09:35 | Inpatient (IN) | payer OTHER ==
[~2019-08-17] VITALS: Ht 168.9 cm; Wt 150.0 kg
[~2019-08-17 09:35] MED LIST changes: +BENZ-18 PO; +CHLORSP MT; +MOXI400T11 PO; +ONDA4TAB6 PO; +PROAAER10 INH; +SERT-138 PO; +SERT-141 PO; +VALA1TAB64 PO
[2019-08-17] MEDS ORDERED: MOM 30ML SUSPENSION UDC PO PRN (10:00)
[2019-08-17] MEDS ORDERED: traZODone 50 MG TAB PO PRN (10:00)
[2019-08-17] MEDS ORDERED: ACETAMINOPHEN TAB 650MG DOSE (2X325MG) PO PRN (10:00)
[2019-08-17] MEDS ORDERED: MAALOX 30 ML SUSP *UDC PO PRN (10:00)
[2019-08-17] MEDS ORDERED: LORazepam 0.5 MG TAB PO PRN (13:45)
[2019-08-17 15:30] VITALS: BP 101/62
--- NOTE | 2019-08-17 20:27 | HPEPDOC ---
[facility] Medical History & Physical Date of Admission Aug 17, 2019 Date of Service: Aug 17, 2019 History and Physical CHIEF COMPLAINT: Admitted to inpatient mental health unit after suicide attempt HISTORY OF PRESENT ILLNESS: 38-year-old female who was initially admitted to the medical floor after intentionally overdosing on sertraline because her son recently , followed by multiple episodes of emesis causing aspiration of gastric contents requiring substantial supplemental oxygen to maintain adequate oxygenation. She was monitored in the ICU setting, requiring up to 50% FiO2, which is slowly been titrated off to room air based on her needs and she was transferred to inpatient mental health unit when stable. Patient is currently without any respiratory complaints, only issue at this time is sore throat and hoarse voice. She does report having a productive cough, denies any dyspnea on exertion. She has no other complaints at this time, denies any chest pain, nausea, vomiting, abdominal pain, diarrhea or constipation. 10 point review of system is negative except for above PAST MEDICAL HISTORY: 1. Anxiety and depression. PAST SURGICAL HISTORY: 1. Hysterectomy. SOCIAL HISTORY: Never smoker. Denies alcohol. Denies drug use FAMILY HISTORY: No family history of cancer or heart disease ALLERGIES: Please see below. HOME MEDICATIONS: Please see below. PHYSICAL EXAMINATION: VITAL SIGNS: Please see below. GENERAL: No distress HEENT: Normocephalic, atraumatic, moist mucous membranes NECK: Supple CARDIOVASCULAR EXAMINATION: S1, S2, no murmurs RESPIRATORY EXAMINATION: Scattered rhonchi, no wheezing ABDOMINAL EXAMINATION: Soft, nontender, nondistended, positive bowel sounds EXTREMITIES: Range of motion intact SKIN: No rash NEUROLOGICAL EXAMINATION: Alert and oriented 3, no focal deficits PSYCHIATRIC EXAMINATION: Calm and cooperative LABORATORY DATA: See below. MICROBIOLOGY: Please see below. ASSESSMENT: 38-year-old female who was admitted to the medical floor for hypoxemic respiratory failure secondary to aspiration of gastric contents from overdosing on sertraline now admitted to inpatient mental health unit. PLAN: 1. Aspiration pneumonia/pneumonitis . Initially treated with Zosyn, which was then switched to moxifloxacin prior to discharge, continue moxifloxacin 400 mg daily for 3 more days. Clinically and hemodynamically stable, currently on room air. 2. Suicide attempt. Management as per primary team Patient has no other medical problems at this time, please reconsult as needed. Vital Signs Vital Signs Date Time Temp Pulse Resp B/P (MAP) Pulse Ox O2 Delivery O2 Flow Rate FiO2 08/17/19 15:30 99.6 97 16 101/62 (75) Home Medications Scheduled Albuterol Sulfate (Proair Hfa) 8.5 Gm Hfa.aer.ad, 1 PUFF INH Q6H Moxifloxacin HCl (Moxifloxacin HCl) 400 Mg Tablet, 400 MG PO DAILY@06 Valacyclovir HCl (Valacyclovir) 1,000 Mg Tablet, 1 GM PO DAILY Scheduled PRN Albuterol Sulfate (Proair Hfa) 8.5 Gm Hfa.aer.ad, 2 PUFF INH Q4-6HP PRN for wheezing Benzonatate (Benzonatate) 100 Mg Capsule, 100 MG PO TIDP PRN for COUGH Ondansetron (Ondansetron Odt) 4 Mg Tab.rapdis, 2 MG PO Q6HP PRN for NAUSEA Phenol (Sore Throat [place]) 177 Ml [place], 1 SPRAY MT Q2HP PRN for SORE THROAT Allergies Coded Allergies: No Known Allergies (Unverified , 07/07/18) A-FIB/CHADSVASC A-FIB History Current/History of A-Fib/PAF?: No ANGELICA WHITNEY MD Aug 17, 2019 20:27
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
[2019-08-18 06:22] VITALS: BP 109/58
--- NOTE | 2019-08-18 08:46 | MHIPNPDOC ---
[facility] Progress Note Progress Note Inpatient Progress Note Gina Solorzano MRN: N/A Date of : N/A Date of Service: 08/18/2019 History of Present Illness The patient a 38-year-old woman with no significant past previous history of psychiatric involvement. Her is active duty and she had recently lost her 22-year-old son who in sleep in [place], a well-known loss in the community and had significant problems adjusting from the loss as well as with grief. She reportedly had a fight with the daughter over the phone, which made her feel significantly overwhelmed and in her moment of despondency had taken overdose of sertraline. She felt guilty after doing this and came to the emergency room voluntarily and requested to be treated. She was admitted to medicine where she was subsequently treated for, medically cleared, brought to our unit. Interval History The patient is met with where she reports that she has been feeling better and that she is very remorseful about her overdose, feeling that it was a "selfish" thing to do and that she still wants to learn how to grieve for her son. She reports that she has been feeling much grief about his loss, but reports that she has been learning to adjust to it. Her grief on the unit has been appropriate with the pattern being primarily only tearful when talking about her lost son, but otherwise euthymic, attending groups. She reports that she is amenable to trying to feel better, but is interested in discharge as she wishes to continue to grieve her son's loss and feels it is difficult to do here due to the difference in the situation and that she has already been in the hospital for significant amount of time. The business continuity planner was able to contact her who reports that he has no concerns about her safety as she has made significant improvements while on the medical unit and had made good progress after he had talked to her on the psychiatric unit. He reports that this was an impulsive decision that she had made, but that she had rapidly realized that it was a problem. He reports no concerns with her returning and that other than the aforementioned episode that brought her in, she had not had any parasuicidal behavior. Review Of Systems General: Denies fever or appetite changes Cardiovascular: Denies chest pain or palpitations GI: Denies Nausea, vomiting, or bowel changes Respiratory: Denies shortness of breath or cough Neuro: Denies dizziness, tremors Derm: Denies any rashes or pruritus : Denies any dysuria or urinary problems MSK: Denies any muscle tightness or stiffness HEENT: Denies any vision changes or headaches Psychotherapy None on this visit. Vital Signs Reviewed. Mental Status Examination General: Well dressed with good hygiene Speech: Spontaneous and fluid Thought processes: Linear and logical MSK: Smooth and coordinated gait, no signs of tremors or involuntary orofacial movements Thought content: Future orientated Abstract reasoning, and computation: Intact Description of associations: Intact Description of abnormal or psychotic thoughts: Denies any suicidal or homicidal ideation. Denies any auditory or visual hallucinations. Does not appear to be responding to internal stimuli. Does not appear to be endorsing any bizarre or paranoid ideation. Judgment: fair Insight: fair Orientation: Alert and orientated 3 Cognition: Grossly normal Recent and remote memory: Intact Attention span and concentration: Intact Fund of knowledge: Adequate Mood: "okay" Affect: Euthymic with a full range Diagnoses Adjustment disorder with disruption of mood and conduct. Bereavement. Assessment and Plan Adjustment disorder: Discussed with patient about danger of serotonin storm if continued on sertraline. Discussed Wellbutrin as an option. We will restart on an antidepressant namely Wellbutrin 150 mg extended release daily. Discussed the risks, benefits and potential side effects as well as alternative options for treatment of her depression. Collateral information confirms patient's story. She has been doing well on our unit. She has had somewhat of a hoarse voice, but has otherwise been doing well. Bereavement: Recommended long-term psychotherapy. Disposition Discharge tomorrow at patient's request as no longer meets involuntary criteria for extension of her admission past 48 hours. Time Spent 30 minutes. Vital Signs Vital Signs Date Time Temp Pulse Resp B/P (MAP) Pulse Ox O2 Delivery O2 Flow Rate FiO2 08/18/19 06:22 98.1 72 16 109/58 (75) Room Air Current Medications Current Medications Medications (Trade) Dose Ordered Sig/Kane Route PRN Reason Start Time Stop Time Status Last Admin Dose Admin Acetaminophen (Tylenol Tab) 650 mg Q6HP PRN PO HEADACHE or DISCOMFORT 08/17/19 10:00 Al Hydrox/Mg Hydrox/Simethicone (Mylanta) 30 ml Q4HP PRN PO HEARTBURN/INDIGESTION 08/17/19 10:00 Lorazepam (Ativan) 0.5 mg QHSP PRN PO INSOMNIA 08/17/19 13:45 Magnesium Hydroxide (Milk Of Magnesia) 30 ml DAILYPRN PRN PO CONSTIPATION 08/17/19 10:00 Moxifloxacin HCl (Avelox) 400 mg DAILY PO 08/18/19 09:00 08/20/19 09:01 Trazodone HCl (Desyrel) 50 mg QHSP PRN PO INSOMNIA 08/17/19 10:00 Allergies Coded Allergies: No Known Allergies (Unverified , 07/07/18) ALEXI MURPHY DO Aug 18, 2019 08:46
[2019-08-18] MEDS: MOXIFLOXACIN 400 MG TAB PO SCH (09:53)
[2019-08-18] MEDS ORDERED: buPROPion **XL** TABLET 150MG (WELLBUTRIN XL) PO ONE (11:00)
[2019-08-18] MEDS ORDERED: BUPR150T3 PO (11:18)
[2019-08-18 18:00] VITALS: BP 122/68
[2019-08-19 06:36] VITALS: BP 124/73
[2019-08-19] MEDS: MOXIFLOXACIN 400 MG TAB PO SCH (08:33)
[2019-08-19] MEDS ORDERED: buPROPion **XL** TABLET 150MG (WELLBUTRIN XL) PO SCH (09:00)
--- NOTE | 2019-08-19 10:19 | MHDSPDOC ---
[facility] Discharge Summary Discharge Summary DATE OF ADMISSION: Aug 17, 2019 at 11:45 DATE OF DISCHARGE: Aug 19, 2019 at 09:08 Discharge Gina Solorzano MRN: N/A Date of : N/A Date of Service: 08/19/2019 Diagnoses Adjustment disorder with disruption of mood and conduct. Bereavement. History of Present Illness The patient a 38-year-old woman with no significant past previous history of psychiatric involvement. Her is active duty and she had recentl y lost her 22-year-old son who in sleep in [place], a well-known loss in the community and had significant problems adjusting from the loss as well as with grief. She reportedly had a fight with the daughter over the phone, which made her feel significantly overwhelmed and in her moment of despondency had taken overdose of sertraline. She felt guilty after doing this and came to the emergency room voluntarily and requested to be treated. She was admitted to medicine where she was subsequently treated for, medically cleared, brought to our unit. Consultants Involved Hospitalist/PCP screening Treatment and Progress On The Unit The patient was admitted to the inpatient unit and subsequently observed. She was notably regretful about her suicide attempt and demonstrated good insight. She was started on Wellbutrin with positive effects at 150 mg. She had been interested in being discharged as she had been on the medical floor for some time and had made good progress in her adjustment problems noticing how much support she has had by various people visiting her. Collateral information was gained from her who reported that he was concerned about her safety as she had had this impulsive action but had sought help and he had met with her and talked to her multiple times since she has arrived finding her similar to her baseline with no concerning statements made to him. He reports that he will be safety planning the home and removing access to means for her as well as at helping her to attend to her grief and outpatient therapy. Discharge Assessment The patient, a 38-year-old woman with likely adjustment disorder in the context of bereavement, presents after a suicidal overdose of sertraline on her own volition for treatment. She is medically cleared and admitted to our unit after several days on the medical unit. After several days since starting on Wellbutrin, she does well with improved affect, more engaged and request discharge. On the day of discharge, she denies any suicidal or homicidal ideation, has been denying suicidal ideation since she arrived on her unit. She has a normal mental status, is euthymic, engaged with good insight and good judgment while she has been here and declines further voluntary admission, thus at this time, I cannot in good ryan extend her past the 48 hours as she is not demonstrating any signs or symptoms per collateral information as well as our own observation that she is at imminent risk. Mental Status Examination General: Well dressed with good hygiene Speech: Spontaneous and fluid Thought processes: Linear and logical MSK: Smooth and coordinated gait, no signs of tremors or involuntary orofacial movements Thought content: Future orientated Abstract reasoning, and computation: Intact Description of associations: Intact Description of abnormal or psychotic thoughts: Denies any suicidal or homicidal ideation. Denies any auditory or visual hallucinations. Does not appear to be responding to internal stimuli. Does not appear to be endorsing any bizarre or paranoid ideation. Judgment: fair Insight: fair Orientation: Alert and orientated 3 Cognition: Grossly normal Recent and remote memory: Intact Attention span and concentration: Intact Fund of knowledge: Adequate Mood: "Great." Affect: Euthymic with a full range Follow Up The social work team worked during the predischarge meeting in order to evaluate for further issues of lethality address them fully before discharge. They worked on safety planning with the patient's family members in order to ensure that the patient will have a safe and effective discharge. Time Spent The amount of time spent in the coordination of care for this patient was approximately 60 minutes. Thursday Vital Signs/I&Os Vital Signs Date Time Temp Pulse Resp B/P (MAP) Pulse Ox O2 Delivery O2 Flow Rate FiO2 08/19/19 06:36 97.5 78 12 124/73 (90) Room Air Medications Scheduled Albuterol Sulfate (Proair Hfa) 8.5 Gm Hfa.aer.ad, 1 PUFF INH Q6H, #1 Bupropion Hcl (Bupropion Xl) 150 Mg Tab.er.24h, 150 MG PO DAILY for mood for 7 Days, #7 Moxifloxacin HCl (Moxifloxacin HCl) 400 Mg Tablet, 400 MG PO DAILY@06 for 3 Days, #3 Valacyclovir HCl (Valacyclovir) 1,000 Mg Tablet, 1 GM PO DAILY, (Reported) Scheduled PRN Albuterol Sulfate (Proair Hfa) 8.5 Gm Hfa.aer.ad, 2 PUFF INH Q4-6HP PRN for wheezing for 21 Days, #1 Benzonatate (Benzonatate) 100 Mg Capsule, 100 MG PO TIDP PRN for COUGH for 14 Days, #30 Ondansetron (Ondansetron Odt) 4 Mg Tab.rapdis, 2 MG PO Q6HP PRN for NAUSEA for 10 Days, #30 Phenol (Sore Throat [place]) 177 Ml [place], 1 SPRAY MT Q2HP PRN for SORE THROAT for 30 Days, #1 Allergies Coded Allergies: No Known Allergies (Unverified , 07/07/18) ALEXI MURPHY DO Aug 19, 2019 10:19
== END 2019-08-19 09:08 | disposition home or self-care (01) | DRG 881 ==
LOC: M PSY 11:45
PROVIDERS: ADMIT Psychiatry & Neurology Addiction Medicine; ATTEND Psychiatry & Neurology Addiction Medicine
DX: F43.21 Adjustment disorder with depressed mood (principal); F41.1 Generalized anxiety disorder; Z91.5 Personal history of self-harm

== ENCOUNTER → 2021-11-15 | Outpatient (CLI) | payer OTHER ==
[~2021-11-15] MED LIST changes: +BUPR150T12 PO; +VALA1TAB5 PO; -VALA1TAB64 PO
== END ==
LOC: M WHC 15:33
PROVIDERS: ATTEND Family Medicine
DX: Z12.31 Encounter for screening mammogram for malignant neoplasm of breast (principal); Z98.82 Breast implant status

== ENCOUNTER 2022-01-22 06:24 | Day surgery (SDC) | payer OTHER ==
[~2022-01-22] VITALS: Ht 170.2 cm; Wt 84.8 kg
[~2022-01-22 06:24] MED LIST changes: +NS 1,000 ML IV ONE; +ZOLO50TA PO
[2022-01-22] MEDS ORDERED: propofoL 500 MG/50 ML VIAL As Ordered ONE (06:34)
[2022-01-22] MEDS ORDERED: LIDOCAINE 2% 100MG/5ML SDV (FOR ANES.) As Ordered ONE (06:34)
[2022-01-22] MEDS ORDERED: fentaNYL 100 MCG/2 ML INJECTION As Ordered ONE (07:13)
[2022-01-22 08:20] VITALS: BP 108/58
== END 2022-01-22 08:23 | disposition home or self-care (01) ==
LOC: M OPP 06:24
PROVIDERS: ATTEND Internal Medicine Gastroenterology
DX: D12.6 Benign neoplasm of colon, unspecified (principal); K62.5 Hemorrhage of anus and rectum; K64.0 First degree hemorrhoids; R10.30 Lower abdominal pain, unspecified; K59.04 Chronic idiopathic constipation; K31.89 Other diseases of stomach and duodenum; R10.13 Epigastric pain; R11.2 Nausea with vomiting, unspecified
CPT/HCPCS: 43239; 45385; 88305; J3010

== ENCOUNTER → 2022-12-05 | Outpatient (CLI) | payer OTHER ==
[~2022-12-05] MED LIST changes: -NS 1,000 ML IV ONE
[2022-12-05 17:38] LABS: BASO % 0.4 % (0.0-1.0); EOS # 0.2 10^3/uL (0.0-0.5); HEMATOCRIT 40.6 % (36.0-47.0); HEMOGLOBIN 12.9 g/dl (12.0-15.5); LYMPH # 1.5 10^3/uL (1.5-5.0); LYMPH % 19.1 % (24.0-44.0); MEAN CORPUSCULAR HEMOGLOBIN 30.5 pg (27.0-33.0); MEAN CORPUSCULAR HGB CONC 31.8 g/dl (32.0-36.5); MONO # 0.5 10^3/uL (0.0-0.8); MONO % 5.8 % (2.0-8.0); NEUTROPHILS # 5.7 10^3/uL (1.5-8.5); NEUTROPHILS % 72.4 % (36.0-66.0); PLATELET COUNT, AUTOMATED 239 10^3/uL (150-450); RED BLOOD COUNT 4.23 10^6/uL (4.00-5.40); WHITE BLOOD COUNT 7.9 10^3/uL (4.0-10.0)
== END ==
LOC: M WUC 13:12
PROVIDERS: ATTEND Nurse Practitioner Family
DX: R59.0 Localized enlarged lymph nodes (principal)